=== PATIENT | female | born 1965 | race American Indian/Alaskan Native ===

== ENCOUNTER 2017-11-16 13:59 | Emergency (ER) | payer OTHER ==
[2017-11-16 14:34] VITALS: BP 138/87
== END 2017-11-16 19:30 | disposition left against medical advice (07) ==
LOC: ED 13:59
DX: M54.2 Cervicalgia (principal); M54.9 Dorsalgia, unspecified; Z53.21 Procedure and treatment not carried out due to patient leaving prior to being seen by health care provider